=== PATIENT | male | born 1980 | race Caucasian/White ===

== ENCOUNTER 2016-09-13 14:03 | Emergency (ER) | payer SELFPAY ==
[~2016-09-13] VITALS: Ht 167.6 cm; Wt 72.0 kg
[2016-09-13 14:05] VITALS: Ht 167.6 cm; Wt 72.0 kg
--- NOTE | 2016-09-13 14:28 | ERD ---
ER Documentation Chief Complaint Date/Time DATE: 09/13/16 TIME: 14:22 Chief Complaint left thumb lac today with a knife HPI This a 36-year-old male who presents to the emergency department today complaining of a cut to his left thumb that he sustained earlier today with a knife. States it was "bleeding a lot". States he does not take any medication for the pain. States he is unsure of his last tetanus vaccine. Denies any previous trauma, fevers or chills ROS All systems reviewed and are negative except as per history of present illness. Medications Home Meds Active Scripts Acetaminophen* (Tylophen*) 500 Mg Capsule, 1 CAP PO Q6H Y for PAIN AND OR ELEVATED TEMP, #30 CAP Prov:AURA CAVANAUGH PA-C 09/13/16 Ibuprofen* (Motrin*) 600 Mg Tab, 600 MG PO Q6, #30 TAB Prov:AURA CAVANAUGH PA-C 09/13/16 Allergies Allergies: Coded Allergies: No Known Allergy (Unverified , 09/13/16) Physical Exam Vitals Vital Signs Date Time Temp Pulse Resp B/P Pulse Ox O2 Delivery O2 Flow Rate FiO2 09/13/16 14:05 98.0 69 18 132/76 99 Physical Exam Const: NAD Head: Atraumatic Eyes: Normal Conjunctiva ENT: Normal External Ears, Nose and Mouth. Neck: Full range of motion..~ No meningismus. Resp: Clear to auscultation bilaterally Cardio: Regular rate and rhythm, no murmurs Skin: Left thumb 1 cm laceration along lateral aspect of nailbed. Bleeding well controlled Back: No midline or flank tenderness Ext: No cyanosis, or edema. Left thumb 170 laceration on lateral aspect of the nailbed. Bleeding well controlled. Full active range of motion of thumb. Good cap refill. Pulses 2+. Distal neurovascular intact Neur: Awake and alert Psych: Normal Mood and Affect Results 24 hrs Current Medications Medications (Trade) Dose Ordered Sig/Kathryn Route PRN Reason Start Time Stop Time Status Last Admin Dose Admin Ibuprofen (Motrin) 800 mg ONCE ONCE PO 09/13/16 14:30 09/13/16 14:31 DC 09/13/16 14:31 Diphtheria/ Tetanus/Acell Pertussis (Adacel) 0.5 ml ONCE ONCE IM* 09/13/16 14:30 09/13/16 14:31 DC 09/13/16 14:32 Procedures/MDM Is a 36-year-old male presents to the emergency department today for a left thumb laceration that he sustained earlier today while cutting with a knife. Patient is afebrile and otherwise well-appearing. The laceration is approximate 1 cm and superficial and is well approximated on its own. I do not feel that the patient requires imaging at this time. Low suspicion for acute fracture dislocation. I do not feel that the patient requires sutures. I have explained this to the patient. I feel that Dermabond and Surgicel will work well for this laceration. The wound was cleaned here in the usual sterile fashion. Patient was given a tetanus vaccine as he was not up-to-date. He is also given Motrin here in the emergency department. I will give him a prescription for Tylenol Motrin for home. May return in 48 hours for a wound check. At this time the patient is stable for discharge and outpatient management. Patient should follow up with their PCP in the next 1-2 days. They may return to the emergency department sooner for any persistent or worsening of symptoms. Patient understood and agreed with the plan. Departure Diagnosis: Primary Impression: Laceration Condition: AURA Mccollum PA-C Sep 13, 2016 14:28
[2016-09-13] MEDS ORDERED: DIPHTH/TET/ACEL PERTUSS (ADULT) 0.5 ML VIAL IM* ONE (14:30)
[2016-09-13] MEDS ORDERED: IBUPROFEN 800 MG TAB PO ONE (14:30)
[2016-09-13] MEDS ORDERED: IBUP-1542 PO (15:00)
[2016-09-13] MEDS ORDERED: ACET500C5 PO (15:00)
== END 2016-09-13 15:05 | disposition home or self-care (01) ==
LOC: FTE 14:03
DX: S61.012A Laceration without foreign body of left thumb without damage to nail, initial encounter (principal); W26.0XXA Contact with knife, initial encounter; Y92.9 Unspecified place or not applicable; Z23 Encounter for immunization
CPT/HCPCS: 90471; 90715